=== PATIENT | female | born 1955 | race Caucasian/White ===

== ENCOUNTER 2018-07-08 10:57 | Emergency (ER) | payer OTHER ==
[~2018-07-08] VITALS: Ht 162.6 cm; Wt 113.4 kg
[2018-07-08] MEDS ORDERED: GLUCOPHAGE1000 MG PO (11:17)
[2018-07-08] MEDS ORDERED: COZAAR 25 MG TA25 M1 PO (11:17)
[2018-07-08] MEDS ORDERED: VICTOZA0.6 MG/0.1 SUBQ (11:18)
[2018-07-08] MEDS ORDERED: NORCO 5-325 TA1 EACH PO (13:27)
[2018-07-08] MEDS ORDERED: MOBIC7.5 MG PO (13:27)
[2018-07-08 14:07] VITALS: BP 164/62
== END 2018-07-08 14:07 | disposition home or self-care (01) ==
LOC: M.ERS 10:57
DX: S80.01XA Contusion of right knee, initial encounter (principal); I10 Essential (primary) hypertension; E11.9 Type 2 diabetes mellitus without complications; Z96.653 Presence of artificial knee joint, bilateral; Z90.710 Acquired absence of both cervix and uterus; Z86.73 Personal history of transient ischemic attack (TIA), and cerebral infarction without residual deficits; W00.0XXA Fall on same level due to ice and snow, initial encounter; Y92.89 Other specified places as the place of occurrence of the external cause; Y93.89 Activity, other specified; Y99.8 Other external cause status